=== PATIENT | male | born 1930 | race Caucasian/White ===

== ENCOUNTER 2019-02-13 00:01 | Inpatient (IN) ==
[2019-02-13 02:00] LABS: Albumin 3.4 G/DL (3.4-5.0); Calcium 9.1 MG/DL (8.5-10.1); Osmolality,Calculated 284.3 MOS/KG (273-304); Total Protein 6.8 G/DL (6.4-8.3)
[2019-02-13 02:45] LABS: Basophils % 0.1 % (0.0-0.8); Hematocrit 36.6 VOL% (42.0-52.0); Hemoglobin 12.3 GM/DL (14.0-18.0); Immature Granulocytes % 0.7 %; Immature Granulocytes Absolute 0.06 #; Lymphocytes # 0.9 10*3/uL (1.4-4.0); Lymphocytes % 10.1 % (21.2-54.2); Mean Corpuscular HGB Conc 33.6 GM/DL (32-36); Mean Corpuscular Volume 104.9 FL (87-102); Mean Platelet Volume 9.6 FL (9.6-12.0); Monocytes % 13.2 % (1.7-12.7); Neutrophils % 75.9 % (38.7-73.9); Platelet Count 112 T/CUMM (130-400); Red Blood Count 3.49 MC/CUMM (3.8-5.5); Red Cell Distribution Width 12.4 % (9.3-17.3)
[2019-02-13 04:31] LABS: Apearance,Urine CLEAR (Clear); Bilirubin,Urine Negative (Negative); Blood, Urine Small mg/dL (Negative); Glucose,Urine (UA) Negative (Negative); Ketones,Urine 20 mg/dL (Negative); Mucus,Urine Occasional /LPF (Occasional); Nitrite,Urine Negative (Negative); Protein,Urine Negative; RBC,Urine 1 /HPF (0-4); Urine Color Yellow (Yellow); Urine Specific Gravity 1.047 (1.001-1.035); Urine Urobilinogen < 2.0 EU/DL (0.2-1.0); WBC,Urine 1 /HPF (0-6)
[2019-02-13] MEDS ORDERED: ONDANSETRON 4 MG/2 ML VIAL IV PRN (04:39)
[2019-02-13] MEDS ORDERED: HYDROmorphone 2 MG/1 ML VIAL IV PRN (04:39)
[2019-02-13] MEDS ORDERED: ACETAMINOPHEN 325 MG TABLET PO PRN (04:39)
[2019-02-13] MEDS: DEXTROSE 5% LACTATED RINGERS 1,000 ML IV SCH ×4 (07:00→22:10)
[2019-02-13] MEDS ORDERED: PANTOPRAZOLE 40 MG TABLET PO SCH (09:00)
[2019-02-13] MEDS: CLINDAMYCIN 300 MG CAPSULE PO SCH ×2 (13:39→22:10)
[2019-02-14] MEDS: DEXTROSE 5% LACTATED RINGERS 1,000 ML IV SCH ×3 (06:02→16:23)
[2019-02-14] MEDS: CLINDAMYCIN 300 MG CAPSULE PO SCH (06:16)
[2019-02-14] MEDS: CALCIUM (CARBONATE)/VITAMIN D 600 MG-400 UNIT TABLET PO SCH (08:40)
[2019-02-14] MEDS: hydroCHLOROthiazide 25 MG TABLET PO SCH (08:40)
[2019-02-14] MEDS: ACYCLOVIR 200 MG CAPSULE PO SCH (08:40)
[2019-02-14] MEDS: MULTIVITAMIN (CENTRUM) TABLET PO SCH (08:40)
[2019-02-14] MEDS: predniSONE 5 MG TABLET PO SCH (08:40)
[2019-02-14] MEDS: MAGNESIUM OXIDE 400 MG TABLET PO SCH (08:40)
[2019-02-14] MEDS: PANTOPRAZOLE 40 MG TABLET PO SCH (08:40)
[2019-02-14] MEDS: POTASSIUM CHLORIDE 20 MEQ TABLET PO SCH (08:40)
[2019-02-14] MEDS: POLYETHYLENE GLYCOL POWDER 17 GM PACK PO SCH (08:41)
[2019-02-14] MEDS ORDERED: POLYVINYL ALCOHOL 1.4% OPH SOLN 15 ML BOTTLE BOTH EYES PRN (10:34)
[2019-02-14] MEDS ORDERED: ALBUTEROL/IPRATROPIUM 3 ML NEB RESP TX PRN (11:54)
[2019-02-14] MEDS: ceFAZolin 1,000 MG in SYRINGE 1 EACH IV SCH ×2 (12:57→21:05)
[2019-02-14] MEDS: ALBUTEROL/IPRATROPIUM 3 ML NEB RESP TX SCH ×2 (14:07→19:48)
[2019-02-14] MEDS ORDERED: IBUPROFEN 200 MG TABLET PO PRN (21:00)
[2019-02-14] MEDS ORDERED: diphenhydrAMINE CAP 25 MG CAPSULE PO PRN (21:00)
[2019-02-14] MEDS: AMITRIPTYLINE 25 MG TABLET PO SCH (21:06)
[2019-02-14] MEDS: DONEPEZIL 10 MG TABLET PO SCH (21:06)
[2019-02-15] MEDS: ALBUTEROL/IPRATROPIUM 3 ML NEB RESP TX SCH ×4 (00:31→19:21)
[2019-02-15] MEDS: DEXTROSE 5% LACTATED RINGERS 1,000 ML IV SCH ×2 (01:45→14:43)
[2019-02-15] MEDS: ceFAZolin 1,000 MG in SYRINGE 1 EACH IV SCH ×3 (04:05→21:20)
[2019-02-15] MEDS: CALCIUM (CARBONATE)/VITAMIN D 600 MG-400 UNIT TABLET PO SCH (09:14)
[2019-02-15] MEDS: MULTIVITAMIN (CENTRUM) TABLET PO SCH (09:14)
[2019-02-15] MEDS: POTASSIUM CHLORIDE 20 MEQ TABLET PO SCH (09:14)
[2019-02-15] MEDS: PANTOPRAZOLE 40 MG TABLET PO SCH (09:14)
[2019-02-15] MEDS: hydroCHLOROthiazide 25 MG TABLET PO SCH (09:14)
[2019-02-15] MEDS: MAGNESIUM OXIDE 400 MG TABLET PO SCH (09:14)
[2019-02-15] MEDS: POLYETHYLENE GLYCOL POWDER 17 GM PACK PO SCH (09:15)
[2019-02-15] MEDS: ACYCLOVIR 200 MG CAPSULE PO SCH (09:15)
[2019-02-15] MEDS: predniSONE 5 MG TABLET PO SCH (09:15)
[2019-02-15] MEDS: BACITRACIN OINT 0.9 GM PACK TOP SCH (18:51)
[2019-02-15] MEDS: AMITRIPTYLINE 25 MG TABLET PO SCH (21:18)
[2019-02-15] MEDS: DONEPEZIL 10 MG TABLET PO SCH (21:18)
[2019-02-16] MEDS: ALBUTEROL/IPRATROPIUM 3 ML NEB RESP TX SCH ×3 (01:53→13:20)
[2019-02-16] MEDS: DEXTROSE 5% LACTATED RINGERS 1,000 ML IV SCH (03:17)
[2019-02-16] MEDS: ceFAZolin 1,000 MG in SYRINGE 1 EACH IV SCH ×3 (03:18→12:10)
[2019-02-16 04:24] LABS: Basophils % 0.2 % (0.0-0.8); Eosinophils # 0.1 10*3/uL (0.0-0.87); Eosinophils % 2.4 % (0.00-10.9); Hematocrit 32.1 VOL% (42.0-52.0); Hemoglobin 10.5 GM/DL (14.0-18.0); Immature Granulocytes % 0.4 %; Immature Granulocytes Absolute 0.02 #; Lymphocytes # 1.1 10*3/uL (1.4-4.0); Lymphocytes % 24.3 % (21.2-54.2); Mean Corpuscular HGB Conc 32.7 GM/DL (32-36); Mean Corpuscular Volume 107.7 FL (87-102); Mean Platelet Volume 10.1 FL (9.6-12.0); Monocytes % 14.5 % (1.7-12.7); Neutrophils % 58.2 % (38.7-73.9); Platelet Count 96 T/CUMM (130-400); Red Blood Count 2.98 MC/CUMM (3.8-5.5); Red Cell Distribution Width 12.8 % (9.3-17.3); White Blood Count 4.6 T/CUMM (4-12)
[2019-02-16 04:42] LABS: Calcium 8.4 MG/DL (8.5-10.1); Osmolality,Calculated 281.3 MOS/KG (273-304)
[2019-02-16 06:19] LABS: Anisocytosis Slight; Macrocytosis Slight
[2019-02-16 06:20] LABS: Platelet Estimate Decreased; Polychromasia Slight
[2019-02-16] MEDS: CALCIUM (CARBONATE)/VITAMIN D 600 MG-400 UNIT TABLET PO SCH (08:49)
[2019-02-16] MEDS: BACITRACIN OINT 0.9 GM PACK TOP SCH (08:49)
[2019-02-16] MEDS: hydroCHLOROthiazide 25 MG TABLET PO SCH (08:49)
[2019-02-16] MEDS: MAGNESIUM OXIDE 400 MG TABLET PO SCH (08:49)
[2019-02-16] MEDS: POLYETHYLENE GLYCOL POWDER 17 GM PACK PO SCH ×2 (08:49→08:54)
[2019-02-16] MEDS: MULTIVITAMIN (CENTRUM) TABLET PO SCH (08:49)
[2019-02-16] MEDS: PANTOPRAZOLE 40 MG TABLET PO SCH (08:50)
[2019-02-16] MEDS: predniSONE 5 MG TABLET PO SCH (08:50)
[2019-02-16] MEDS: POTASSIUM CHLORIDE 20 MEQ TABLET PO SCH (08:50)
[2019-02-16] MEDS: ACYCLOVIR 200 MG CAPSULE PO SCH (09:36)
[2019-02-16 12:21] VITALS: BP 160/74
== END 2019-02-16 15:28 | disposition home health service (06) | DRG 983 ==
LOC: N.EDINP 00:01 → N.ED 00:01 → N.TELES 05:59
PROVIDERS: ADMIT Surgery; ATTEND Surgery